=== PATIENT | female | born 1990 | race African-American/Black ===

== ENCOUNTER 2016-07-17 19:28 | Emergency (ER) | payer MEDICAID ==
[~2016-07-17] VITALS: Ht 177.8 cm; Wt 73.0 kg
[2016-07-17 21:09] VITALS: BP 112/58
== END 2016-07-17 22:02 | disposition home or self-care (01) ==
LOC: ER 20:00
DX: K02.9 Dental caries, unspecified (principal); H61.21 Impacted cerumen, right ear; H92.01 Otalgia, right ear; J45.909 Unspecified asthma, uncomplicated; Z88.5 Allergy status to narcotic agent; F17.210 Nicotine dependence, cigarettes, uncomplicated
CPT/HCPCS: 99283